=== PATIENT | male | born 1990 | race Caucasian/White ===

== ENCOUNTER 2018-12-03 22:31 | Emergency (ER) | payer BC ==
[~2018-12-03] VITALS: Ht 170.2 cm; Wt 68.0 kg
[2018-12-03 22:43] VITALS: BP 124/70
--- NOTE | 2018-12-03 22:43 | NUR ---
ED Nurse Note: Walk-in patient with complaints of left lateral thigh lesion, acute onset.
[2018-12-03] MEDS ORDERED: SEROQUEL100 MG ORAL (22:46)
[2018-12-04] MEDS ORDERED: BACTRIM DS TAB1 EAC1 ORAL (00:03)
--- NOTE | 2018-12-04 00:06 | Emergency Room Report ---
History of Present Illness General Chief Complaint: Skin Rash/Abscess Source: Patient Present Illness HPI Disclaimer: Please note that this report is being documented using DRAGON technology. This can lead to erroneous entry secondary to incorrect interpretation by the dictating instrument. HPI: 27-year-old male with a history of depression presents for evaluation of a rash. The patient states he noticed a bump and what appeared to be a pimple on the left leg, posterior aspect, this morning. He tried to pop it and got some purulent drainage out of it but then noted significant pain, induration and surrounding erythema. Is warm to the touch. He denies any fevers, vomiting, diarrhea or other signs of infections. He does not inject any drugs or medications. Denies any other areas of rash. PMH: Depression PSH: Denies Allergies: Denies Social Hx: Denies IV drug use Allergies: Coded Allergies: No Known Allergies (Unverified , 12/03/18) Nursing Documentation-PMH Past Medical History: No Stated History Review of Systems All Other Systems: negative except mentioned in HPI Physical Exam Vital Signs Date Time Temp Pulse Resp B/P (MAP) Pulse Ox O2 Delivery O2 Flow Rate FiO2 12/03/18 22:43 98.6 86 14 124/70 97 Room Air General: Awake and alert, no acute distress Resp: Normal work of breathing. Skin: 5 cm circular region over the posterior lateral aspect of the left upper thigh is erythematous and indurated. Tender to palpation. Cannot express any purulent drainage. Ultrasound examination does not show any deep space infection. MSK: Normal tone and bulk. Moving all extremities. No obvious deformity. Neuro: Awake and alert. Mentating appropriately. Procedures Additional Procedure Procedure Narrative Soft tissue ultrasound performed at bedside. No significant fluid pockets appreciated over the area of cellulitis in the posterior lateral aspect of the left upper thigh. There is some cobblestoning suggesting cellulitis. Medical Decision Making Diagnostic Impression: Primary Impression: Cellulitis and abscess of left leg ER Course 28-year-old male presents for evaluation of a rash appears to be a cellulitis without a abscess. The patient be started on Bactrim and follow-up with 1 of the clinics listed in his discharge paperwork. We discussed reasons to return to the emergency department. He understands and agrees with this treatment plan. Last Vital Signs Date Time Temp Pulse Resp B/P (MAP) Pulse Ox O2 Delivery O2 Flow Rate FiO2 12/03/18 22:43 98.6 88 14 124/70 (88) 97 Room Air Disposition: HOME, SELF-CARE Condition: Stable Scripts Trimethoprim/Sulfamethoxazole 160/800* (BACTRIM DS TABLET*) 1 Each Tablet 1 TAB ORAL Q12H for 7 Days, #14 TAB 0 Refills Prov: Vaibhav Sahu MD 12/04/18 Referrals: [facility] Patient Instructions: Cellulitis Additional Instructions: Take antibiotics twice a day for the entire treatment course even if symptoms improve over the next few days. Follow-up with your doctor or 1 of the clinics listed here in your discharge paperwork for reevaluation next week. Return to the emergency department if you have spreading of the area of redness, worsening pain or significant drainage. Return to the emergency department any new or worsening symptoms. Vaibhav Sahu MD Dec 04, 2018 00:06
[2018-12-04] MEDS ORDERED: Bactrim-DS 1 tab ORAL ONE (00:15)
--- NOTE | 2018-12-04 00:28 | NUR ---
ED Nurse Note: Patient cleared for discharge per ERMD, no s/s of acute distress and patient tolerated medication administration well. Patient ID band removed and patient departed to his car with all belongings.
[2018-12-04 00:29] VITALS: BP 124/70
== END 2018-12-04 00:29 | disposition home or self-care (01) ==
LOC: EMR 23:03
DX: L02.416 Cutaneous abscess of left lower limb (principal); L03.116 Cellulitis of left lower limb; F32.9 Major depressive disorder, single episode, unspecified
CPT/HCPCS: 99282